=== PATIENT | female | born 1930 | race Caucasian/White ===

== ENCOUNTER 2016-08-20 16:12 | Inpatient (IN) | payer OTHER ==
[~2016-08-20] VITALS: Ht 149.9 cm; Wt 57.2 kg
[~2016-08-20 16:12] MED LIST: ASPI81TA28 PO; CALC-20 PO; CHOL1CAP67 PO; CYAN500T PO; GLUC10007 PO; HYDR-5688 PO; MAGN1TAB19 PO; MINO100C22 PO; MULT-614 PO; SENN-65 PO; TRIA37.5 PO
[2016-08-20] MEDS ORDERED: ACET-1256 PO (16:49)
--- NOTE | 2016-08-20 16:52 | DIAGNOSTIC IMAGING REPORT ---
CHEST ONE VIEW PORTABLE CLINICAL HISTORY: Shortness of breath. COMPARISON STUDY: 01/08/2014 FINDINGS: The heart is enlarged. There is radiographic evidence of congestive failure/fluid overload. There are small bilateral pleural effusions. There are associated bibasilar opacities likely atelectatic. Arthritic changes are present within the shoulders.[ IMPRESSION: Congestive heart failure pattern with bilateral pleural effusions. There are bibasilar opacities, likely atelectatic Electronically signed by: Kofi Cornell M.D. 08/20/2016 4:51 PM Dictated Date/Time: 08/20/2016 4:50 PM
[2016-08-20] MEDS ORDERED: FUROSEMIDE 40 MG/4 ML VIAL IV STA (17:07)
[2016-08-20] MEDS ORDERED: NITROGLYCERIN OINT 2% 1GM PACKET EXT ONE (17:15)
[2016-08-20 17:29] LABS: BASO % 0.8 %; BASO ABS # 0.04 K/uL (0-0.2); COMPLETE YES; EOS % 2.4 %; HEMATOCRIT 36.1 % (37-47); IG% 0.2 %; LYMPH % 33.5 %; LYMPH ABS # 1.78 K/uL (1.2-3.4); MEAN CELL VOLUME 95.3 fL (80-100); MEAN CORPUSCULAR HEMOGLOBIN 32.7 pg (25-34); MEAN CORPUSCULAR HGB CONC 34.3 g/dl (32-36); MONO % 10.5 %; NEUT % 52.6 %; PLATELET COUNT 294 K/uL (130-400); RED BLOOD COUNT 3.79 M/uL (4.2-5.4); WHITE BLOOD COUNT 5.31 K/uL (4.8-10.8)
[2016-08-20 17:42] LABS: PROTHROMBIN TIME (PATIENT) 10.6 SECONDS (9.0-12.0)
[2016-08-20 17:48] LABS: BUN/CREATININE RATIO 19.4 (10-20); CALCIUM 9.7 mg/dl (8.5-10.1); CREATININE 0.72 mg/dl (0.60-1.20); POTASSIUM 3.5 mmol/L (3.5-5.1)
[2016-08-20 17:53] LABS: ALB/GLOB RATIO 1.3 (0.9-2); CKMB/CK RATIO 2.4 (0-3.0)
[2016-08-20 18:11] LABS: URINE APPEARANCE CLEAR (CLEAR); URINE BILIRUBIN NEG (NEG); URINE COLOR YELLOW; URINE NITRITE NEG (NEG); URINE SPECIFIC GRAVITY 1.012 (1.000-1.030); UROBILINOGEN NEG (NEG)
[2016-08-20 18:16] LABS: MANUAL MICROSCOPIC REQUIRED? NO; REVIEW REQ? NO
[2016-08-20] MEDS ORDERED: ONDANSETRON INJ 2 MG/ML 2 ML VIAL IV PRN (21:30)
[2016-08-20] MEDS ORDERED: MoRPHine SULFATE 2 MG/ML CARP IV PRN (21:30)
[2016-08-20] MEDS ORDERED: POLYETHYLENE (MIRALAX) 17 GM PACK PO PRN (21:30)
[2016-08-20] MEDS ORDERED: ACETAMINOPHEN 325 MG TAB PO PRN (21:30)
[2016-08-20] MEDS ORDERED: ASPI325T45 PO (21:38)
[2016-08-20] MEDS ORDERED: ASPIRIN 81 MG CHEW PO STA (21:39)
[2016-08-20 22:09] VITALS: BP 170/90; PULSE 97; TEMP 36.6
[2016-08-20] MEDS: ATORVASTATIN 40 MG TAB PO SCH (22:26)
[2016-08-20] MEDS: NITROGLYCERIN OINT 2% 1GM PACKET EXT SCH (22:26)
--- NOTE | 2016-08-20 22:26 | History and Physical ---
History & Physical Date & Time of Service: Aug 20, 2016 at 21:39 Chief Complaint: Can't Hardly Breath, Swollen Ankles Primary Care Physician: Nona Pradhan M.D. History of Present Illness Source: patient, family, clinic records, hospital records 86 yo F with HTN presents with several weeks of shortness of breath and ankle swelling, with SOB increasing to the point of conversational dyspnea in the last two days. She denies any weight gain and states that her average weight at home is 125lbs. She reports the shortness of breath progressively getting worse over the past month and in the last two days she reports coughing, intermittent chest pain that goes away with rest and comes on with exertion, PND and orthopnea. She denies any swelling in her abdomen or elsewhere. She reports a history of mitral valve regurgitation, however, on review of the records her last TTE in Dec 2012 revealed mitral valve calcification without evident of regurgitation. She denies any h/o COPD and is a lifelong nonsmoker who doesn't use alcohol. She denies any history of heart disease. 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 There is significant tenderness to palpation of her chest on my exam tonight. She also has some conversational dyspnea that is present. She is unable to qualify her chest pain but states that it doesn't radiate. She does report pain with taking a deep breath. She reports feeling drainage in her throat when she lies flat, and this causes her to cough and need to sit up/elevate her head. She reports her ears feeling "itchy" when she lays flat. She was placed on Maxzide for HTN a few months ago and then was taken off because of low sodium and was never put back on. The patient states that when she sees a doctor her BP goes up but at home when she takes it the readings are around 130 systolic. She does report a headache, but only since the nitropaste was placed in the ER. Workup in the ER reveals congestive failure on xray with clear lungs on exam, no JVD, or edema but clear issues with working to breath with minimal exertion. She does not desaturate, however , and is oxygenating well on room air. EKG reveals chronic LBBB, trop is negative and labwork is otherwise unremarkable except for a BNP 2745. Past Medical/Surgical History Medical Problems: (1) Hypertension Status: Chronic Surgical Problems: (1) S/P wrist surgery Status: Chronic (2) Status post cataract extraction Status: Chronic (3) Status post total knee replacement Status: Chronic Family History Bone cancer SISTER FH: CAD (coronary artery disease) FATHER Social History Smoking Status: Never Smoker Smokeless Tobacco Use: No Alcohol Use: none Drug Use: none Marital Status: Housing status: lives with significant other Occupational Status: retired Immunizations History of Influenza Vaccine: Yes Influenza Vaccine Date: Dec 20, 2015 History of Tetanus Vaccine?: Yes Tetanus Immunization Date: June 12, 2007 History of Pneumococcal: Yes Pneumococcal Date: May 10, 2014 History of Hepatitis B Vaccine: No Multi-Drug Resistant Organisms History of MDRO: No Allergies Coded Allergies: Sulfa Antibiotics (Unverified Allergy, Unknown, CAN'T RECALL REACTION, 12/27) Home Medications Scheduled Aspirin (Aspirin), 325 MG PO DAILY Multiple Vitamins W/ Minerals (Centrum Silver Ultra [place]), 1 TAB PO DAILY Scheduled PRN Acetaminophen (Tylenol), 500 MG PO DIRECTED PRN for Pain or Fever Review of Systems Constitutional: + weakness, No fever, No chills, No weight loss Eyes: No worsening of vision ENT: + dental problems (dentures), No nasal symptoms, No sore throat Respiratory: + cough, + shortness of breath, + dyspnea on exertion Cardiovascular: + chest pain, + orthopnea, + PND, + edema Abdomen: No pain, No nausea, No vomiting, No diarrhea, No constipation, No GI bleeding Musculoskeletal: + joint pain, + muscle pain (in her chest), + swelling Genitourinary - Female: No dysuria, No urinary frequency, No urinary urgency, No urinary incontinence, No urinary retention, No hematuria Psychiatric: No substance abuse Hematologic / Lymphatic: No night sweats Integumentary: No rash, No new/changing skin lesions Allergic / Immunologic: No food allergies Physical Exam Vital Signs Date Time Temp Pulse Resp B/P (MAP) Pulse Ox O2 Delivery O2 Flow Rate FiO2 08/20/16 21:04 91 20 167/94 94 Room Air 08/20/16 20:43 94 08/20/16 19:30 90 18 172/89 94 Room Air 08/20/16 18:00 97 191/118 93 Room Air 08/20/16 17:37 93 168/119 95 Room Air 08/20/16 17:23 124 97 Room Air 08/20/16 17:21 102 193/100 93 08/20/16 16:41 Room Air 08/20/16 16:41 94 08/20/16 16:35 93 08/20/16 16:17 36.8 103 22 176/65 96 Room Air General Appearance: WD/WN, + mild distress Head: normocephalic, atraumatic Eyes: normal inspection, PERRL, EOMI, sclerae normal ENT: normal ENT inspection, pharynx normal Neck: supple, no adenopathy, no JVD, trachea midline Respiratory/Chest: lungs clear, normal breath sounds, + respiratory distress ( severe TTP under L breast and along sternal borders bilaterally), + pertinent finding Cardiovascular: regular rate, rhythm, no edema, no murmur, normal peripheral pulses Abdomen/GI: normal bowel sounds, non tender, soft Extremities/Musculoskelatal: normal inspection, no pedal edema, normal range of motion, + pertinent finding (shins are TTP) Neurologic/Psych: survey manager II-XII nml as tested, no motor/sensory deficits, alert, normal mood/affect, oriented x 3 Skin: normal color, no rash Diagnostics Laboratory Results 08/20/16 17:00 Red Blood Count 3.79, Mean Corpuscular Volume 95.3, Mean Corpuscular Hemoglobin 32.7, Mean Corpuscular Hemoglobin Concent 34.3, Mean Platelet Volume 10.0, Neutrophils (%) (Auto) 52.6, Lymphocytes (%) (Auto) 33.5, Monocytes (%) (Auto) 10.5, Eosinophils (%) (Auto) 2.4, Basophils (%) (Auto) 0.8, Neutrophils # (Auto ) 2.79, Lymphocytes # (Auto) 1.78, Monocytes # (Auto) 0.56, Eosinophils # (Auto ) 0.13, Basophils # (Auto) 0.04 08/20/16 17:00 Test 08/20/16 17:00 08/20/16 17:08 08/20/16 23:23 08/21/16 00:00 White Blood Count 5.31 K/uL (4.8-10.8) Red Blood Count 3.79 M/uL (4.2-5.4) Hemoglobin 12.4 g/dL (12.0-16.0) Hematocrit 36.1 % (37-47) Mean Corpuscular Volume 95.3 fL (80-100) Mean Corpuscular Hemoglobin 32.7 pg (25-34) Mean Corpuscular Hemoglobin Concent 34.3 g/dl (32-36) Platelet Count 294 K/uL (130-400) Mean Platelet Volume 10.0 fL (7.4-10.4) Neutrophils (%) (Auto) 52.6 % Lymphocytes (%) (Auto) 33.5 % Monocytes (%) (Auto) 10.5 % Eosinophils (%) (Auto) 2.4 % Basophils (%) (Auto) 0.8 % Neutrophils # (Auto) 2.79 K/uL (1.4-6.5) Lymphocytes # (Auto) 1.78 K/uL (1.2-3.4) Monocytes # (Auto) 0.56 K/uL (0.11-0.59) Eosinophils # (Auto) 0.13 K/uL (0-0.5) Basophils # (Auto) 0.04 K/uL (0-0.2) RDW Standard Deviation 43.3 fL (36.4-46.3) RDW Coefficient of Variation 12.6 % (11.5-14.5) Immature Granulocyte % (Auto) 0.2 % Immature Granulocyte # (Auto) 0.01 K/uL (0.00-0.02) Prothrombin Time 10.6 SECONDS (9.0-12.0) Prothromb Time International Ratio 1.0 (0.9-1.1) Activated Partial Thromboplast Time 25.9 SECONDS (21.0-31.0) Partial Thromboplastin Ratio 1.0 Anion Gap 11.0 mmol/L (3-11) Est Creatinine Clear Calc Drug Dose 45.2 ml/min Estimated GFR () 88.5 Estimated GFR (Non- 76.4 BUN/Creatinine Ratio 19.4 (10-20) Calcium Level 9.7 mg/dl (8.5-10.1) Total Bilirubin 0.6 mg/dl (0.2-1) Aspartate Amino Transf (AST/SGOT) 25 U/L (15-37) Alanine Aminotransferase (ALT/SGPT) 35 U/L (12-78) Alkaline Phosphatase 74 U/L (45-117) Pro-B-Type Natriuretic Peptide 2745 pg/ml (0-1800) Total Protein 6.8 gm/dl (6.4-8.2) Albumin 3.9 gm/dl (3.4-5.0) Globulin 2.9 gm/dl (2.5-4.0) Albumin/Globulin Ratio 1.3 (0.9-2) Bedside Lactic Acid Venous 0.84 mmol/L (0.90-1.70) Total Creatine Kinase 80 U/L (26-192) Creatine Kinase MB 2.5 ng/ml (0.5-3.6) Creatine Kinase MB Ratio 3.1 (0-3.0) Troponin I 0.148 ng/ml (0-0.045) Urine Color YELLOW Urine Appearance CLEAR (CLEAR) Urine pH 7.5 (4.5-7.5) Urine Specific [place] 1.014 (1.000-1.030) Urine Protein NEG (NEG) Urine Glucose (UA) NEG (NEG) Urine Ketones NEG (NEG) Urine Occult Blood NEG (NEG) Urine Nitrite NEG (NEG) Urine Bilirubin NEG (NEG) Urine Urobilinogen NEG (NEG) Urine Leukocyte Esterase NEG (NEG) Date/Time Source Procedure Growth Status 08/20/16 17:26 Blood Blood Culture Pending Received 08/21/16 00:00 Urine,Catheterized Urine Culture Pending Received Results Past 24 Hours Test 08/20/16 17:00 08/20/16 17:08 08/20/16 17:43 Range/Units White Blood Count 5.31 4.8-10.8 K/uL Red Blood Count 3.79 4.2-5.4 M/uL Hemoglobin 12.4 12.0-16.0 g/dL Hematocrit 36.1 37-47 % Mean Corpuscular Volume 95.3 80-100 fL Mean Corpuscular Hemoglobin 32.7 25-34 pg Mean Corpuscular Hemoglobin Concent 34.3 32-36 g/dl Platelet Count 294 130-400 K/uL Mean Platelet Volume 10.0 7.4-10.4 fL Neutrophils (%) (Auto) 52.6 % Lymphocytes (%) (Auto) 33.5 % Monocytes (%) (Auto) 10.5 % Eosinophils (%) (Auto) 2.4 % Basophils (%) (Auto) 0.8 % Neutrophils # (Auto) 2.79 1.4-6.5 K/uL Lymphocytes # (Auto) 1.78 1.2-3.4 K/uL Monocytes # (Auto) 0.56 0.11-0.59 K/uL Eosinophils # (Auto) 0.13 0-0.5 K/uL Basophils # (Auto) 0.04 0-0.2 K/uL RDW Standard Deviation 43.3 36.4-46.3 fL RDW Coefficient of Variation 12.6 11.5-14.5 % Immature Granulocyte % (Auto) 0.2 % Immature Granulocyte # (Auto) 0.01 0.00-0.02 K/uL Prothrombin Time 10.6 9.0-12.0 SECONDS Prothromb Time International Ratio 1.0 0.9-1.1 Activated Partial Thromboplast Time 25.9 21.0-31.0 SECONDS Partial Thromboplastin Ratio 1.0 Sodium Level 134 136-145 mmol/L Potassium Level 3.5 3.5-5.1 mmol/L Chloride Level 101 98-107 mmol/L Carbon Dioxide Level 22 21-32 mmol/L Anion Gap 11.0 3-11 mmol/L Blood Urea Nitrogen 14 7-18 mg/dl Creatinine 0.72 0.60-1.20 mg/dl Est Creatinine Clear Calc Drug Dose 45.2 ml/min Estimated GFR () 88.5 Estimated GFR (Non- 76.4 BUN/Creatinine Ratio 19.4 10-20 Random Glucose 104 70-99 mg/dl Calcium Level 9.7 8.5-10.1 mg/dl Total Bilirubin 0.6 0.2-1 mg/dl Aspartate Amino Transf (AST/SGOT) 25 15-37 U/L Alanine Aminotransferase (ALT/SGPT) 35 12-78 U/L Alkaline Phosphatase 74 45-117 U/L Total Creatine Kinase 84 26-192 U/L Creatine Kinase MB 2.0 0.5-3.6 ng/ml Creatine Kinase MB Ratio 2.4 0-3.0 Troponin I 0.025 0-0.045 ng/ml Pro-B-Type Natriuretic Peptide 2745 0-1800 pg/ml Total Protein 6.8 6.4-8.2 gm/dl Albumin 3.9 3.4-5.0 gm/dl Globulin 2.9 2.5-4.0 gm/dl Albumin/Globulin Ratio 1.3 0.9-2 Bedside Lactic Acid Venous 0.84 0.90-1.70 mmol/L Urine Color YELLOW Urine Appearance CLEAR CLEAR Urine pH 7.0 4.5-7.5 Urine Specific [place] 1.012 1.000-1.030 Urine Protein NEG NEG Urine Glucose (UA) NEG NEG Urine Ketones NEG NEG Urine Occult Blood NEG NEG Urine Nitrite NEG NEG Urine Bilirubin NEG NEG Urine Urobilinogen NEG NEG Urine Leukocyte Esterase NEG NEG Microbiology Results 08/20/16 Blood Culture, Received Pending 08/20/16 Blood Culture, Received Pending Diagnostic Radiology CHEST ONE VIEW PORTABLE CLINICAL HISTORY: Shortness of breath. COMPARISON STUDY: 01/08/2014 FINDINGS: The heart is enlarged. There is radiographic evidence of congestive failure/fluid overload. There are small bilateral pleural effusions. There are associated bibasilar opacities likely atelectatic. Arthritic changes are present within the shoulders.[ IMPRESSION: Congestive heart failure pattern with bilateral pleural effusions. There are bibasilar opacities, likely atelectatic EKG LBBB (on prior EKG), SR99 Impression Assessment and Plan 86 yo F presents with progressive SOB over the past month with worsening in the past two days. 1. Acute CHF exacerbation-no known h/o CAD, patient does reports a mitral valve disorder, however, there is no obvious murmur on exam and per last echo no MR was present. CXR reveals pulmonary congestion, however, patient has clear lungs on exam and no edema in lower extremities. She does have conversational dyspnea, PND and orthopnea that appears significant. Cards consult for eval in the morning. TTE in am ordered. Trend serial cardiac enzymes overnight in setting of CHF with chest pain. Of note, pt was given 20 IV Lasix in the ER and diuresed 1500cc. Will place [place] for accurate I/Os and will not redose furosemide again until the morning. 2. Chest pain-atypical and definitely has a musculoskeletal component. May be related to cardiac chest pain. Will treat as above and Lipitor for plaque stabilization. Cont ASA. Nitro, morphine PRN 3. HTN-not on antihypertensives as an outpatient. Pt was on Maxzide but was taken off of it for electrolyte abnormalities and not given a substitute. Nitro paste continued from ER. Primary team to assist with definitive choice. DVT proph-heparin SQ Full Code Dispo-telemetry Basia Bland DO [facility]. Level of Care Telemetry Resuscitation Status FULL RESUSCITATION VTE Prophylaxis VTE Risk Assessment Done? Y/N: Yes Risk Level: Moderate Given or contraindicated: Unfractionated heparin SQ
[2016-08-20] MEDS: HEPARIN SOD 5000 UNIT/0.5 ML CARP SQ SCH (22:30)
[2016-08-20 23:27] VITALS: BP 157/80; PULSE 81; TEMP 36.5; O2SAT 90
[2016-08-20 23:43] VITALS: BP 170/90; PULSE 97; TEMP 36.6; O2SAT 90; Ht 149.9 cm; Wt 57.2 kg
[2016-08-21] VITALS (10 sets, daily range): BP systolic 112–165; BP diastolic 52–89; PULSE 85–102; TEMP 36.4–36.7; O2SAT 90–95
[2016-08-21 00:22] LABS: CKMB/CK RATIO 3.1 (0-3.0)
--- NOTE | 2016-08-21 00:46 | EMERGENCY ROOM VISIT NOTE ---
History Report prepared by Edy: Rosario Myers Under the Supervision of: Dr. Ace Lam M.D. First contact with patient: 16:30 Chief Complaint: SHORTNESS OF BREATH Stated Complaint: CAN'T HARDLY BREATH, SWOLLEN ANKLES History of Present Illness The patient is an 86 year old female who presents to the Emergency Room with complaints of persistent, worsening shortness of breath that began three weeks ago. She currently rates her discomfort as a 3/10 in severity. The patient states that she has been feeling short of breath and noticed increased edema to her ankles. She states that she saw her PCP's office and states that the physician therapeutic assistant did not do anything for her. The patient states that her edema is worse at night. She additionally reports a nonproductive cough. The patient states that she has been noticing intermittent slight left sided chest pains. She states that she has been feeling fatigued. The patient states that she can only walk short distances and then must stop to take a rest because of feeling short of breath. She reports a history of a mitral valve leakage. The patient denies any history of COPD, congestive heart failure, pneumonia, or emphysema. Pt denies LOC, headache, fevers, chills, diaphoresis, visual changes , neck pain, nausea, vomiting, abdominal pain, back pain, melena, hematochezia, urinary symptoms, numbness, weakness, lymphadenopathy, rash, or other complaints. Source of History: patient Onset: three weeks ago Position: other (global) Symptom Intensity: 3/10 Quality: other (shortness of breath) Timing: worsening, other (persistent) Associated Symptoms: + cough, + chest pain, + fatigue Note: Associated Symptoms: swelling to ankles Review of Systems See HPI for pertinent positives and negatives. A total of ten systems were reviewed and were otherwise negative. Past Medical & Surgical Medical Problems: (1) CHF exacerbation (2) Hypertension (3) Mitral valve regurgitation Surgical Problems: (1) S/P wrist surgery (2) Status post cataract extraction (3) Status post total knee replacement Family History Bone cancer SISTER FH: CAD (coronary artery disease) FATHER Social History Smoking Status: Never Smoker Marital Status: Housing Status: lives with family Current/Historical Medications Scheduled Aspirin (Aspirin), 325 MG PO DAILY Multiple Vitamins W/ Minerals (Centrum Silver Ultra [place]), 1 TAB PO DAILY Scheduled PRN Acetaminophen (Tylenol), 500 MG PO DIRECTED PRN for Pain or Fever Allergies Coded Allergies: Sulfa Antibiotics (Unverified Allergy, Unknown, CAN'T RECALL REACTION, 12/27) Physical Exam Vital Signs Date Time Temp Pulse Resp B/P (MAP) Pulse Ox O2 Delivery O2 Flow Rate FiO2 08/20/16 19:30 90 18 172/89 94 Room Air 08/20/16 18:00 97 191/118 93 Room Air 08/20/16 17:37 93 168/119 95 Room Air 08/20/16 17:23 124 97 Room Air 08/20/16 17:21 102 193/100 93 08/20/16 16:41 Room Air 08/20/16 16:41 94 08/20/16 16:35 93 08/20/16 16:17 36.8 103 22 176/65 96 Room Air Physical Exam GENERAL: Awake, alert, well-appearing, in no distress HENT: Normocephalic, atraumatic. Oropharynx unremarkable. EYES: Normal conjunctiva. Sclera non-icteric. NECK: Supple. No nuchal rigidity. FROM. No JVD. RESPIRATORY: Scattered rales. CARDIAC: Borderline tachycardic heart rate, normal rhythm. Extremities warm and well perfused. Pulses equal. ABDOMEN: Soft, non-distended. No tenderness to palpation. No rebound or guarding. No masses. RECTAL: Deferred. MUSCULOSKELETAL: Chest examination reveals no tenderness. The back is symmetrical on inspection without obvious abnormality. There is no CVA tenderness to palpation. No joint edema. LOWER EXTREMITIES: Calves are equal size bilaterally and non-tender. 1+ lower extremity edema. No discoloration. NEURO: Normal sensorium. No sensory or motor deficits noted. SKIN: No rash or jaundice noted. Medical Decision & Procedures ER Provider Diagnostic Interpretation: X-ray: Per my interpretation, radiologist review. CHEST ONE VIEW PORTABLE CLINICAL HISTORY: Shortness of breath. COMPARISON STUDY: 01/08/2014 FINDINGS: The heart is enlarged. There is radiographic evidence of congestive failure/fluid overload. There are small bilateral pleural effusions. There are associated bibasilar opacities likely atelectatic. Arthritic changes are present within the shoulders.[ IMPRESSION: Congestive heart failure pattern with bilateral pleural effusions. There are bibasilar opacities, likely atelectatic Electronically signed by: Kofi Cornell M.D. 08/20/2016 4:51 PM Dictated Date/Time: 08/20/2016 4:50 PM Laboratory Results 08/20/16 17:00 Red Blood Count 3.79, Mean Corpuscular Volume 95.3, Mean Corpuscular Hemoglobin 32.7, Mean Corpuscular Hemoglobin Concent 34.3, Mean Platelet Volume 10.0, Neutrophils (%) (Auto) 52.6, Lymphocytes (%) (Auto) 33.5, Monocytes (%) (Auto) 10.5, Eosinophils (%) (Auto) 2.4, Basophils (%) (Auto) 0.8, Neutrophils # (Auto ) 2.79, Lymphocytes # (Auto) 1.78, Monocytes # (Auto) 0.56, Eosinophils # (Auto ) 0.13, Basophils # (Auto) 0.04 08/20/16 17:00 Test 08/20/16 17:00 08/20/16 17:08 08/20/16 17:43 White Blood Count 5.31 K/uL (4.8-10.8) Red Blood Count 3.79 M/uL (4.2-5.4) Hemoglobin 12.4 g/dL (12.0-16.0) Hematocrit 36.1 % (37-47) Mean Corpuscular Volume 95.3 fL (80-100) Mean Corpuscular Hemoglobin 32.7 pg (25-34) Mean Corpuscular Hemoglobin Concent 34.3 g/dl (32-36) Platelet Count 294 K/uL (130-400) Mean Platelet Volume 10.0 fL (7.4-10.4) Neutrophils (%) (Auto) 52.6 % Lymphocytes (%) (Auto) 33.5 % Monocytes (%) (Auto) 10.5 % Eosinophils (%) (Auto) 2.4 % Basophils (%) (Auto) 0.8 % Neutrophils # (Auto) 2.79 K/uL (1.4-6.5) Lymphocytes # (Auto) 1.78 K/uL (1.2-3.4) Monocytes # (Auto) 0.56 K/uL (0.11-0.59) Eosinophils # (Auto) 0.13 K/uL (0-0.5) Basophils # (Auto) 0.04 K/uL (0-0.2) RDW Standard Deviation 43.3 fL (36.4-46.3) RDW Coefficient of Variation 12.6 % (11.5-14.5) Immature Granulocyte % (Auto) 0.2 % Immature Granulocyte # (Auto) 0.01 K/uL (0.00-0.02) Prothrombin Time 10.6 SECONDS (9.0-12.0) Prothromb Time International Ratio 1.0 (0.9-1.1) Activated Partial Thromboplast Time 25.9 SECONDS (21.0-31.0) Partial Thromboplastin Ratio 1.0 Anion Gap 11.0 mmol/L (3-11) Est Creatinine Clear Calc Drug Dose 45.2 ml/min Estimated GFR () 88.5 Estimated GFR (Non- 76.4 BUN/Creatinine Ratio 19.4 (10-20) Calcium Level 9.7 mg/dl (8.5-10.1) Total Bilirubin 0.6 mg/dl (0.2-1) Aspartate Amino Transf (AST/SGOT) 25 U/L (15-37) Alanine Aminotransferase (ALT/SGPT) 35 U/L (12-78) Alkaline Phosphatase 74 U/L (45-117) Pro-B-Type Natriuretic Peptide 2745 pg/ml (0-1800) Total Protein 6.8 gm/dl (6.4-8.2) Albumin 3.9 gm/dl (3.4-5.0) Globulin 2.9 gm/dl (2.5-4.0) Albumin/Globulin Ratio 1.3 (0.9-2) Bedside Lactic Acid Venous 0.84 mmol/L (0.90-1.70) Urine Color YELLOW Urine Appearance CLEAR (CLEAR) Urine pH 7.0 (4.5-7.5) Urine Specific [place] 1.012 (1.000-1.030) Urine Protein NEG (NEG) Urine Glucose (UA) NEG (NEG) Urine Ketones NEG (NEG) Urine Occult Blood NEG (NEG) Urine Nitrite NEG (NEG) Urine Bilirubin NEG (NEG) Urine Urobilinogen NEG (NEG) Urine Leukocyte Esterase NEG (NEG) Laboratory results reviewed by me Medications Administered Medications (Trade) Dose Ordered Sig/[place] Route Start Time Stop Time Status Last Admin Dose Admin Nitroglycerin (Nitroglycerin 2% Oint) 0.5 inch NOW ONCE EXT 08/20/16 17:15 08/20/16 17:16 DC 08/20/16 17:23 0.5 INCH Furosemide (Lasix Inj) 20 mg NOW STAT IV 08/20/16 17:07 08/20/16 17:09 DC 08/20/16 17:21 20 MG ECG Indication: SOB/dyspnea Rate (beats per minute): 99 Rhythm: normal sinus Findings: LBBB, no ectopy Comparison ECG Date: 01/08/14 Change: no significant change ED Course 1657: The patient was evaluated in room A3. A complete history and physical exam was performed. 1706: Ordered Lasix Inj 20 mg IV. 1714: Ordered Nitroglycerin 0.5 inch EXT. 1920: I reevaluated the patient and she is resting comfortably. I discussed the exam findings with her and I discussed the treatment plan. She verbalized complete understanding and agreement. She will be evaluated for further treatment. 1923: I discussed the patients case with Barbara Cates. She is going to evaluate the patient for further treatment. Medical Decision Blood pressure screening: Patient was found to have an elevated blood pressure and was referred to their primary doctor for recheck and further treatment. Medication Reconciliation: I attest that I have personally reviewed the patient' s current medication list Triage Nursing notes reviewed. The patient's presentation and history were concerning for shortness of breath. Etiologies such as pneumonia, COPD, reactive airway disease, CHF, cardiac ischemia, pulmonary embolism, pneumothorax, musculoskeletal, infections, gastrointestinal, as well as others were entertained. Patient was evaluated. Clinically she was doing well although was dyspneic. Chest x-ray was performed and was concerning for CHF. The patient had an unremarkable CBC, lactate, coags, urinalysis and cardiac markers. BNP was significantly elevated. Given her history, physical, x-ray and laboratory findings seems to be new onset CHF. The patient was given Lasix as well as nitro paste. On reassessment she was breathing easier. She will need further evaluation and management in the hospital. Consultation was made with the [facility] hospitalist. The patient was evaluated in the Emergency Room for further management. Consults Time Called: 1919 Consulting Physician: Barbara Cates Returned Call: 1923 I discussed the patients case with Barbara Cates. She is going to evaluate the patient for further treatment. Impression Primary Impression: Acute CHF Scribe Attestation The scribe's documentation has been prepared under my direction and personally reviewed by me in its entirety. I confirm that the note above accurately reflects all work, treatment, procedures, and medical decision making performed by me. Departure Information Dispostion Being Evaluated By Hospitalist Referrals Nona Pradhan M.D. (PCP)
[2016-08-21 01:28] LABS: MANUAL MICROSCOPIC REQUIRED? NO; REVIEW REQ? NO; URINE APPEARANCE CLEAR (CLEAR); URINE BILIRUBIN NEG (NEG); URINE COLOR YELLOW; URINE NITRITE NEG (NEG); URINE PH 7.5 (4.5-7.5); URINE SPECIFIC GRAVITY 1.014 (1.000-1.030); UROBILINOGEN NEG (NEG)
[2016-08-21] MEDS: NITROGLYCERIN OINT 2% 1GM PACKET EXT SCH ×4 (04:09→21:39)
[2016-08-21 05:45] LABS: HEMATOCRIT 37.8 % (37-47); MEAN CELL VOLUME 94.5 fL (80-100); MEAN CORPUSCULAR HEMOGLOBIN 30.8 pg (25-34); MEAN CORPUSCULAR HGB CONC 32.5 g/dl (32-36); PLATELET COUNT 309 K/uL (130-400); WHITE BLOOD COUNT 5.76 K/uL (4.8-10.8)
[2016-08-21] MEDS: HEPARIN SOD 5000 UNIT/0.5 ML CARP SQ SCH ×3 (05:57→21:44)
[2016-08-21 06:04] LABS: BUN/CREATININE RATIO 24.1 (10-20); CALCIUM 8.8 mg/dl (8.5-10.1); CREATININE 0.58 mg/dl (0.60-1.20); POTASSIUM 3.2 mmol/L (3.5-5.1)
[2016-08-21 06:12] LABS: CHOLESTEROL/HDL RATIO 2.3; CKMB/CK RATIO 4.4 (0-3.0)
[2016-08-21] MEDS: CEROVITE ADV FORMULA TAB PO SCH (07:37)
[2016-08-21] MEDS: ASPIRIN 325 MG ECTAB PO SCH (07:37)
[2016-08-21] MEDS ORDERED: POTASSIUM CHLORIDE 20 MEQ TABCR PO ONE (08:00)
[2016-08-21] MEDS ORDERED: POTASSIUM CHLORIDE INJ 40 MEQ in SODIUM CHLORIDE 0.9% 500ML 500 ML IV SCH (08:00)
--- NOTE | 2016-08-21 10:41 | Clinical Documentation Query ---
QUERY 1 OF [address] TORRES, Please document CHF specificity when ECHO results are available In your clinical opinion is this patient being managed for: ( ) Acute Diastolic CHF ( ) Acute Systolic CHF ( ) Acute combined systolic and diastolic CHF ( ) Other explanation of clinical findings (Please Explain) ( ) Unable to determine (Please Define) ( ) Need to Discuss ( ) Not Agree The medical record reflects the following clinical findings, treatment, and risk factors. Clinical Indicators: 86 yo female presenting with worsening dyspnea, increasing ankle edema and intermittent chest pain with exertion. H/P indicates pt with Acute CHF. Treatment: IV lasix x 1 in ER and to be reevaluated for further dosing, tele, cardiology consult, ECHO pending, I/O Risk Factors: age, HTN QUERY 2 OF 2 In your clinical opinion is this patient being managed for: ( ) Chronic kidney disease, stage 2 ( ) Other explanation of clinical findings (Please Explain) ( ) Unable to determine (Please Define) ( ) Need to Discuss ( ) Not Agree The medical record reflects the following clinical findings, treatment, and risk factors. Clinical Indicators: Review of limited available GFR's shows range of 76.4-84. Treatment: monitor PRP's, I/O, tele, Risk Factors: age, HTN, mitral valve regurgitation Please clarify and document your clinical opinion in the progress notes and discharge summary. Terms such as "probable", "suspected", "likely", "questionable", "possible", or "still to be ruled out" are acceptable. IF IN AGREEMENT, YOU MUST DOCUMENT ABOVE DIAGNOSTIC STATEMENT IN DAILY PROGRESS NOTES AND DISCHARGE SUMMARY. This document is not part of the patient's record. Thank You, Davida Callejas, RN [phone]
--- NOTE | 2016-08-21 11:31 | Cardiology Consultation ---
Cardiology Consultation Date of Consultation: Aug 21, 2016 Requesting Physician: Baldo Attending Rug Scratcher: Jake (Michele Huerta PA-C) History of Present Illness Mrs. Gates is a very pleasant 86 year old female who is being seen at the request of Dr. Bland. Reason for consultation is new onset congestive heart failure. Mrs. Gates notes being in her usual state of health until May 2016. At that time routine laboratory work revealed hyponatremia for which she received a call from her PCP and was advised to stop Maxzide. Thereafter she began to notice changes. She describes that it because harder to do her housework, plant gore, plant tomatoes, etc. She describes increased fatigue, reduced exercise tolerance, increased exertional dyspnea, reduction in exercise tolerance, distal bilateral lower extremity edema, wheezing at night, orthopnea, and intermittent PND. She notes trying Vics and an OTC cough syrup at night without benefit. Symptoms progressed to conversational dyspnea over the last two days. Chest x-ray in the ER revealed congestive heart failure with bilateral pleural effusions and bibasilar airspace opacities felt to be atelectatic as per Dr. Kraig M.D. She was given 20 mg IV furosemide with considerable improvement in her presenting symptoms, 1,750 ml's of diuresis thus far with the single dose of furosemide in the ER. Blood pressure was markedly elevated on presentation, improving somewhat with diuresis and the addition of nitro paste. EKG is as described below. Initial troponin was normal (0.025 ng/mL) then beth to 0.248 and 0.520. This morning the patient feels improved overall since admission though she describes ongoing stuffiness, congestion. She denies history of OR, CAD, CHF, rheumatic fever, or scarlet fever. Her lone cardiac issue is a remote history of mitral valve prolapse. (Michele Huerta PA-C) Past Medical/Surgical History Problem List: Past Medical and Surgical History: Hypertension Chronic left bundle branch block Diastolic dysfunction Mitral valve disorder Dyslipidemia Impaired fasting glucose Migraine headaches Anxiety Generalized osteoarthritis Osteoporosis T7 wedge compression fracture Left rotator cuff issues Cervical disc disease Left total knee replacement Distal right radius fracture status post surgery Bilateral cataract extraction Diverticulosis of colon Diverticulitis of colon Family History: Father at 71 with an OR. Mother at 88 of "old age." One sister at 85 with bone cancer. Two brothers and one sister remain. Brother with prostate cancer and diabetes mellitus. Social History: Lifelong nonsmoker. No alcohol. No illegal drug use. . Lives with her . 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 Two children. Son alive and well. Daughter at 50, alcoholic cirrhosis. 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 (Michele Huerta PA-C) Family History Bone cancer SISTER FH: CAD (coronary artery disease) FATHER (Michele Huerta PA-C) Bone cancer SISTER FH: CAD (coronary artery disease) FATHER (Angelo Joseph D.OHarvey) Social History Smoking Status: Never Smoker Smokeless Tobacco Use: No Alcohol Use: none Drug Use: none Marital Status: Housing Status: lives with significant other Occupation: retired (Michele Huerta PA-C) Review Of Systems General: No fever or chills. HEENT: Headaches. No recent head trauma. Mouth: Dentures. Cardiovascular: + chest pain. + dyspnea on exertion. + Orthopnea. + PND. + Edema. No palpitations. No near syncope or syncope. Pulmonary: + Cough. + Nocturnal wheezing. + Pleuritic discomfort. No sputum. No hemoptysis. Gastrointestinal: + Nausea. + Mild diffuse abdominal discomfort. Intermittent constipation. No vomiting. Skin: No rash. Musculoskeletal: Diffise discomfort. Shoulder discomfort. Low back pain. Diffuse pain/tenderness to both legs. Neurological: Denies history of TIA, CVA, or seizure Otherwise, negative or noncontributory. (Michele Huerta PA-C) Allergies Coded Allergies: Sulfa Antibiotics (Unverified Allergy, Unknown, CAN'T RECALL REACTION, 12/27) Medications Reported Home Medications Medications Dose Route/Sig Max Daily Dose Days Date Category Aspirin 325 Mg Tab 325 Mg PO DAILY 08/20/16 Reported Tylenol (Acetaminophen) 500 Mg Tab 500 Mg PO DIRECTED PRN 08/20/16 Reported Centrum Silver Ultra [place] (Multiple Vitamins W/ Minerals) 1 Tab Tab 1 Tab PO DAILY 05/31/13 Reported (Michele Huerta PA-C) Physical Exam Vital Signs (Last 8hrs): Last 8 Hrs Date Time Temp Pulse Resp B/P (MAP) Pulse Ox O2 Delivery O2 Flow Rate FiO2 08/21/16 08:00 Room Air 08/21/16 07:25 36.6 90 16 158/76 (103) 90 Room Air 08/21/16 04:00 Room Air 08/21/16 04:00 36.5 85 16 152/80 (104) 93 Room Air General Appearance: Alert and Oriented x3. NAD. HEENT: Normocephalic Atraumatic. PERRLA, EOMI, conjunctiva and sclera clear Neck: Elevated JVP. + HJR. No carotid bruits. Respiratory: Bibasilar rales. No wheeze. Cardiovascular: Regular at 94 bpm. + Gallop. Soft systolic ejection murmur, right upper sternal border. No diastolic murmur. PMI is displaced laterally. Abdomen: +BS. No abdominal bruits. Soft. Nontender. No masses. No hepatomegaly or splenomegaly. Acosta catheter in place draining somewhat concentrated urine. Extremities: Trivial edema. No clubbing. No cyanosis. Distal pulses are excellent bilaterally, 2/4 Neuro: No focal deficits. Psychiatric: Normal affect. (Michele Huerta, ALENA) Data Last 24 Hours Test 08/20/16 17:00 08/20/16 17:08 08/20/16 17:43 08/20/16 23:23 White Blood Count 5.31 K/uL Red Blood Count 3.79 M/uL Hemoglobin 12.4 g/dL Hematocrit 36.1 % Mean Corpuscular Volume 95.3 fL Mean Corpuscular Hemoglobin 32.7 pg Mean Corpuscular Hemoglobin Concent 34.3 g/dl Platelet Count 294 K/uL Mean Platelet Volume 10.0 fL Neutrophils (%) (Auto) 52.6 % Lymphocytes (%) (Auto) 33.5 % Monocytes (%) (Auto) 10.5 % Eosinophils (%) (Auto) 2.4 % Basophils (%) (Auto) 0.8 % Neutrophils # (Auto) 2.79 K/uL Lymphocytes # (Auto) 1.78 K/uL Monocytes # (Auto) 0.56 K/uL Eosinophils # (Auto) 0.13 K/uL Basophils # (Auto) 0.04 K/uL RDW Standard Deviation 43.3 fL RDW Coefficient of Variation 12.6 % Immature Granulocyte % (Auto) 0.2 % Immature Granulocyte # (Auto) 0.01 K/uL Prothrombin Time 10.6 SECONDS Prothromb Time International Ratio 1.0 Activated Partial Thromboplast Time 25.9 SECONDS Partial Thromboplastin Ratio 1.0 Sodium Level 134 mmol/L Potassium Level 3.5 mmol/L Chloride Level 101 mmol/L Carbon Dioxide Level 22 mmol/L Anion Gap 11.0 mmol/L Blood Urea Nitrogen 14 mg/dl Creatinine 0.72 mg/dl Est Creatinine Clear Calc Drug Dose 45.2 ml/min Estimated GFR () 88.5 Estimated GFR (Non- 76.4 BUN/Creatinine Ratio 19.4 Random Glucose 104 mg/dl Calcium Level 9.7 mg/dl Total Bilirubin 0.6 mg/dl Aspartate Amino Transf (AST/SGOT) 25 U/L Alanine Aminotransferase (ALT/SGPT) 35 U/L Alkaline Phosphatase 74 U/L Total Creatine Kinase 84 U/L 80 U/L Creatine Kinase MB 2.0 ng/ml 2.5 ng/ml Creatine Kinase MB Ratio 2.4 3.1 Troponin I 0.025 ng/ml 0.148 ng/ml Pro-B-Type Natriuretic Peptide 2745 pg/ml Total Protein 6.8 gm/dl Albumin 3.9 gm/dl Globulin 2.9 gm/dl Albumin/Globulin Ratio 1.3 Bedside Lactic Acid Venous 0.84 mmol/L Urine Color YELLOW Urine Appearance CLEAR Urine pH 7.0 Urine Specific [place] 1.012 Urine Protein NEG Urine Glucose (UA) NEG Urine Ketones NEG Urine Occult Blood NEG Urine Nitrite NEG Urine Bilirubin NEG Urine Urobilinogen NEG Urine Leukocyte Esterase NEG Test 08/21/16 00:00 08/21/16 05:20 Urine Color YELLOW Urine Appearance CLEAR Urine pH 7.5 Urine Specific [place] 1.014 Urine Protein NEG Urine Glucose (UA) NEG Urine Ketones NEG Urine Occult Blood NEG Urine Nitrite NEG Urine Bilirubin NEG Urine Urobilinogen NEG Urine Leukocyte Esterase NEG White Blood Count 5.76 K/uL Red Blood Count 4.00 M/uL Hemoglobin 12.3 g/dL Hematocrit 37.8 % Mean Corpuscular Volume 94.5 fL Mean Corpuscular Hemoglobin 30.8 pg Mean Corpuscular Hemoglobin Concent 32.5 g/dl RDW Standard Deviation 42.8 fL RDW Coefficient of Variation 12.5 % Platelet Count 309 K/uL Mean Platelet Volume 10.0 fL Sodium Level 136 mmol/L Potassium Level 3.2 mmol/L Chloride Level 100 mmol/L Carbon Dioxide Level 27 mmol/L Anion Gap 9.0 mmol/L Blood Urea Nitrogen 14 mg/dl Creatinine 0.58 mg/dl Est Creatinine Clear Calc Drug Dose 54.7 ml/min Estimated GFR () 97.4 Estimated GFR (Non- 84.0 BUN/Creatinine Ratio 24.1 Random Glucose 116 mg/dl Calcium Level 8.8 mg/dl Total Creatine Kinase 89 U/L Creatine Kinase MB 3.9 ng/ml Creatine Kinase MB Ratio 4.4 Troponin I 0.520 ng/ml Pro-B-Type Natriuretic Peptide 3851 pg/ml Triglycerides Level 47 mg/dl Cholesterol Level 173 mg/dl HDL Cholesterol 74 mg/dl LDL Cholesterol, Calculated 90 mg/dl VLDL Cholesterol, Calculated 9 mg/dl Cholesterol/HDL Ratio 2.3 CXR: See above. EKG dated and timed 20-AUG-2016 @ 16:27:34: Normal sinus rhythm at 99 bpm. Left bundle branch block. EKG dated and timed 21-AUG-2016 @ 07:45:21: Normal sinus rhythm with sinus arrhythmia at 81 bpm. Left bundle branch block. Telemetry: Sinus/sinus tachycardia. PVC's in singles. Echo: Pending. (Michele Huerta PA-C) Assessment & Plan Very pleasant 86 year old female presenting to [facility] on August 20, 2016 with signs and symptoms of acute decompensated congestive heart failure. Although this may represent an acute exacerbation of diastolic congestive heart failure secondary to uncontrolled hypertension following discontinuation of thiazide diuretic therapy, clinical concern is raised for new onset systolic dysfunction. Troponin elevations, at this point, appear to representing demand ischemia with EKG's uninterruptible due to the chronic left bundle branch block. Recommend supplementing potassium orally, correcting the hypokalemia observed on morning labs followed by continued IV diuresis with low dose IV furosemide. Nitro paste will be continued for blood pressure control. Carvedilol will be initiated for additional blood pressure as well as heart rate control. ASA and statin therapies should be continued. Resting echocardiography requested with further recommendations pending the results of the echo, evaluation by Dr. Jospeh, and her ongoing hospitalization. (Michele Huerta PA-C) CARDIOLOGY ATTENDING ADDENDUM: The patient was seen and personally examined. Agree with Michele Huerta PA-C's findings and plans as documented above with additions as noted below. S: patient feels much improved. SOB and LE edema improved. BP still elevated. Exam: trace ankle edema Impression: Volume overload acute systolic vs diastolic Heart failure, in setting of LBBB. hypokalemia. Plan: Furosemide 20 mg IV x 1 now. Has already received IV and PO potassium replacement, will order another dose of potassium chloride 20 mg PO x 1 with furosemide. check chem panel in am. Await echo. SQ heparin for DVT prophylaxis. (Angelo Joseph,D.O.)
[2016-08-21] MEDS ORDERED: POTASSIUM CHLORIDE 10 MEQ TABCR PO STA (15:26)
[2016-08-21] MEDS ORDERED: FUROSEMIDE INJ 20 MG in SYRINGE 0 ML IV ONE (15:45)
--- NOTE | 2016-08-21 16:46 | ECHOCARDIOGRAM REPORT ---
*NOTICE TO RECEIVING [employer] This information is strictly Confidential and protected under [place] law. [place] law prohibits you from making any further disclosure of this information unless further disclosure is expressly permitted by the written consent of the person to whom it pertains or is authorized by law. A general authorization for the release of medical or other information is not sufficient for this purpose. Hospital accepts no responsibility if the information is made available to any other person, INCLUDING THE PATIENT. Interpretation Summary * Name: MARY MALLORY Study Date: 08/21/2016 02:23 PM * Patient Location: [facility] * : 1930 (M/d/yyyy) Gender: Female Height: 59 in * Age: 86 yrs Ethnicity: CA Weight: 133 lb * Ordering Physician: Basia Bland * Referring Physician: Self, Referred * Performed By: Trevor Arteaga RCS * * Reason For Study: CHF * BSA: 1.6 m2 * -- Conclusions -- * There is mild concentric left ventricular hypertrophy. * The left ventricle is mildly dilated. * Septal motion is consistent with conduction abnormality. * Otherwise, there is moderate to severe global left ventricular hypokinesis. * Left ventricular systolic function is severely reduced. * Ejection Fraction = 25-30%. * There is severe mitral annular calcification. * There is moderate mitral regurgitation. * Grade I diastolic dysfunction, (abnormal relaxation pattern). * The left atrium is moderately dilated. Procedure Details * A complete two-dimensional transthoracic echocardiogram was performed (2D, M-mode, Doppler and color flow Doppler). Left Ventricle * The left ventricle is mildly dilated. * There is mild concentric left ventricular hypertrophy. * Left ventricular systolic function is severely reduced. * Ejection Fraction = 25-30%. * Septal motion is consistent with conduction abnormality. * Otherwise, there is moderate to severe global left ventricular hypokinesis. Right Ventricle * The right ventricle is normal size. * The right ventricular systolic function is normal as assessed by tricuspid annular plane systolic excursion (TAPSE) (normal >1.5 cm). Atria * The left atrium is moderately dilated. * Right atrial size is normal. * There is no evidence of atrial septal defect, but resolution does not allow assessment for a patent foramen ovale. Mitral Valve * There is severe mitral annular calcification. * There is no mitral valve stenosis. * There is moderate mitral regurgitation. Tricuspid Valve * The tricuspid valve is normal. * There is no tricuspid stenosis. * Significant tricuspid regurgitation is absent. * Doppler findings do not suggest pulmonary hypertension. Aortic Valve * The aortic valve is trileaflet. * Aortic stenosis is absent. * There is no significant aortic regurgitation. Pulmonic Valve * The pulmonary valve is not well seen, but the Doppler examination is normal without significant regurgitation or stenosis. Great Vessels * The aortic root and proximal ascending aorta are normal sized. Pericardium/Pleural * There is no pericardial effusion. Great Vessels * Normal inferior vena cava diameter and respiratory variation suggests normal central venous pressure. Left Ventricular Diastolic Function * Grade I diastolic dysfunction, (abnormal relaxation pattern). MMode 2D Measurements and Calculations IVSd 1.0 cm LVIDd 5.4 cm LVIDs 4.5 cm LVPWd 1.1 cm IVS/LVPW 0.94 FS 17.1 % EDV(Teich) 143.0 ml ESV(Teich) 92.6 ml EF(Teich) 35.3 % EDV(cubed) 160.0 ml ESV(cubed) 91.3 ml EF(cubed) 42.9 % LV mass(C)d 221.8 grams LV mass(C)dI 143.1 grams/m\S\2 SV(Teich) 50.5 ml SI(Teich) 32.6 ml/m\S\2 SV(cubed) 68.7 ml SI(cubed) 44.3 ml/m\S\2 LVAd ap4 28.9 cm\S\2 LVLd ap4 7.6 cm EDV(MOD-sp4) 89.7 ml LVAs ap4 23.8 cm\S\2 LVLs ap4 6.9 cm ESV(MOD-sp4) 67.3 ml EF(MOD-sp4) 25.0 % LVAd ap2 32.9 cm\S\2 LVLd ap2 8.0 cm EDV(MOD-sp2) 113.0 ml LVAs ap2 23.3 cm\S\2 LVLs ap2 6.7 cm ESV(MOD-sp2) 68.7 ml EF(MOD-sp2) 39.2 % SV(MOD-sp4) 22.4 ml SI(MOD-sp4) 14.4 ml/m\S\2 SV(MOD-sp2) 44.3 ml SI(MOD-sp2) 28.6 ml/m\S\2 Doppler Measurements and Calculations MV E max johanna 94.1 cm/sec MV A max johanna 109.6 cm/sec MV E/A 0.86 MV P1/2t max johanna 120.4 cm/sec MV P1/2t 44.9 msec MVA(P1/2t) 4.9 cm\S\2 MV dec slope 784.3 cm/sec\S\2 MV dec time 0.10 sec Ao V2 max 123.7 cm/sec Ao max PG 6.1 mmHg Ao max PG (full) 3.8 mmHg LV V1 max PG 2.3 mmHg LV V1 max 76.6 cm/sec
--- NOTE | 2016-08-21 17:53 | Progress Note ---
Medicine Progress Note Date & Time of Visit: Aug 21, 2016 at 17:27. Subjective Pt was seen and examined Lying in bed comfortable with no distress Pt said that she feels much better today She said that before she could not lying flat on the her bed because of dyspnea She denies any chest pain, palpitation, dizziness. Objective Last 8 Hrs Date Time Temp Pulse Resp B/P (MAP) Pulse Ox O2 Delivery O2 Flow Rate FiO2 08/21/16 16:21 102 157/77 (103) 08/21/16 12:00 Room Air 08/21/16 11:19 36.7 92 16 165/89 (114) 95 Room Air Physical Exam: General- No acute distress, very pleasant Head- atraumatic Eyes- PERRL, EOMI ENT- oropharynx clear Neck- supple, no bruits appreciated Lungs- No wheezing Heart- regular rhythm, +systolic murmur Abdomen- normal bowel sounds, soft, nontender Extremities- no calf tenderness Neuro- alert, oriented x 3; PERRL, EOMI Skin- warm & dry Laboratory Results: Last 24 Hours Test 08/20/16 17:43 08/20/16 23:23 08/21/16 00:00 08/21/16 05:20 Urine Color YELLOW YELLOW Urine Appearance CLEAR CLEAR Urine pH 7.0 7.5 Urine Specific [place] 1.012 1.014 Urine Protein NEG NEG Urine Glucose (UA) NEG NEG Urine Ketones NEG NEG Urine Occult Blood NEG NEG Urine Nitrite NEG NEG Urine Bilirubin NEG NEG Urine Urobilinogen NEG NEG Urine Leukocyte Esterase NEG NEG Total Creatine Kinase 80 U/L 89 U/L Creatine Kinase MB 2.5 ng/ml 3.9 ng/ml Creatine Kinase MB Ratio 3.1 4.4 Troponin I 0.148 ng/ml 0.520 ng/ml White Blood Count 5.76 K/uL Red Blood Count 4.00 M/uL Hemoglobin 12.3 g/dL Hematocrit 37.8 % Mean Corpuscular Volume 94.5 fL Mean Corpuscular Hemoglobin 30.8 pg Mean Corpuscular Hemoglobin Concent 32.5 g/dl RDW Standard Deviation 42.8 fL RDW Coefficient of Variation 12.5 % Platelet Count 309 K/uL Mean Platelet Volume 10.0 fL Sodium Level 136 mmol/L Potassium Level 3.2 mmol/L Chloride Level 100 mmol/L Carbon Dioxide Level 27 mmol/L Anion Gap 9.0 mmol/L Blood Urea Nitrogen 14 mg/dl Creatinine 0.58 mg/dl Est Creatinine Clear Calc Drug Dose 54.7 ml/min Estimated GFR () 97.4 Estimated GFR (Non- 84.0 BUN/Creatinine Ratio 24.1 Random Glucose 116 mg/dl Calcium Level 8.8 mg/dl Pro-B-Type Natriuretic Peptide 3851 pg/ml Triglycerides Level 47 mg/dl Cholesterol Level 173 mg/dl HDL Cholesterol 74 mg/dl LDL Cholesterol, Calculated 90 mg/dl VLDL Cholesterol, Calculated 9 mg/dl Cholesterol/HDL Ratio 2.3 Date/Time Source Procedure Growth Status 08/21/16 00:00 Urine,Catheterized Urine Culture Pending Received Assessment & Plan Acute CHF exacerbation- Has been having worsening dyspnea and orthopnea Discontinued Maxzide recently due to hyponatremia CXR on admission showed Congestive heart failure pattern with bilateral pleural effusions Received 20 IV lasix in the ER and diuresis about 1700 ml cardiology ordered lasix 20mg x1 today Continue monitor in telemetry Cardiology on board Echo done today showed -- Conclusions -- * There is mild concentric left ventricular hypertrophy. * The left ventricle is mildly dilated. * Septal motion is consistent with conduction abnormality. * Otherwise, there is moderate to severe global left ventricular hypokinesis. * Left ventricular systolic function is severely reduced. * Ejection Fraction = 25-30%. * There is severe mitral annular calcification. * There is moderate mitral regurgitation. * Grade I diastolic dysfunction, (abnormal relaxation pattern). * The left atrium is moderately dilated. Chest pain Seems to be atypical on presentation Troponin slightly increased EKG showed LBBB Echo showed moderate to severe global left ventricular hypokinesis. Continue ass, statin and Beta ramya Resolved HTN Not on any outpt BP med Maxzide was discontinued by her PCP Continue nitropaste, carvedilol Hypokalemia K replaced continue monitor BMP DVT px heparin SQ CODE STATUS Full Code Consultants: Cardio Current Inpatient Medications: Current Inpatient Medications Medications (Trade) Dose Ordered Sig/Mirlande Route Start Time Stop Time Status Last Admin Dose Admin Heparin Sodium (Porcine) (Heparin Sq 5000 Unit/0.5ml) 5,000 unit Q8 SQ 08/20/16 22:30 09/19/16 22:29 08/21/16 14:01 5,000 UNIT Acetaminophen (Tylenol Tab) 650 mg Q4H PRN PO 08/20/16 21:30 09/19/16 21:29 Ondansetron HCl (Zofran Inj) 4 mg Q6H PRN IV 08/20/16 21:30 09/19/16 21:29 Nitroglycerin (Nitroglycerin 2% Oint) 1 inch Q6H EXT 08/20/16 22:00 09/19/16 21:59 08/21/16 16:30 1 INCH Morphine Sulfate (MoRPHine SULFATE INJ) 2 mg Q30M PRN IV 08/20/16 21:30 09/03/16 21:29 Polyethylene (Miralax Powder Packet) 17 gm DAILY PRN PO 08/20/16 21:30 09/19/16 21:29 Atorvastatin Calcium (Lipitor Tab) 80 mg HS PO 08/20/16 22:30 09/19/16 22:29 08/20/16 22:26 80 MG Aspirin (Ecotrin Tab) 325 mg DAILY PO 08/21/16 09:00 09/20/16 08:59 08/21/16 07:37 325 MG Multivitamins/ Minerals (Multivitamin W/ Minerals Tab) 1 tab DAILY PO 08/21/16 09:00 09/20/16 08:59 08/21/16 07:37 1 TAB Carvedilol (Coreg Tab) 3.125 mg BID PO 08/21/16 21:00 09/20/16 20:59
[2016-08-21] MEDS: CARVEDILOL 3.125 MG TAB PO SCH (21:38)
[2016-08-21] MEDS: ATORVASTATIN 40 MG TAB PO SCH (21:39)
[2016-08-22] VITALS (7 sets, daily range): BP systolic 127–147; BP diastolic 58–81; PULSE 68–87; TEMP 36.4–36.7; O2SAT 95–96
[2016-08-22] MEDS: NITROGLYCERIN OINT 2% 1GM PACKET EXT SCH ×2 (04:50→09:47)
[2016-08-22] MEDS: HEPARIN SOD 5000 UNIT/0.5 ML CARP SQ SCH ×2 (05:50→14:03)
[2016-08-22 06:35] LABS: BUN/CREATININE RATIO 26.4 (10-20); CALCIUM 8.8 mg/dl (8.5-10.1); CREATININE 0.66 mg/dl (0.60-1.20); MAGNESIUM 1.8 mg/dl (1.8-2.4); POTASSIUM 3.7 mmol/L (3.5-5.1)
[2016-08-22] MEDS: CARVEDILOL 3.125 MG TAB PO SCH (08:19)
[2016-08-22] MEDS: ASPIRIN 325 MG ECTAB PO SCH (08:20)
[2016-08-22] MEDS: CEROVITE ADV FORMULA TAB PO SCH (08:20)
--- NOTE | 2016-08-22 10:33 | Cardiology Follow-Up ---
Subjective General Date of Service: Aug 22, 2016. Chief Complaint: Shortness of breath Pt evaluation today including: conversation w/ patient, physical exam, chart review, lab review, review of studies, review of inpatient medication list History of Present Illness Patient seen and examined. Feels considerably better this morning. Very anxious to return home. No resting or nocturnal dyspnea, cough, or orthopnea. Slept well. Lower extremity edema improved. Denies chest pain or palpitations. I/O's are negative 3,000 mL's overall Weight is down 3.2 kg since admission Telemetry: Sinus with a LBBB pattern in the 80's. PVC's in singles. Short paroxysm of SVT at 17:00:14. August 21, 2016 TTE Interpretation Summary ([facility], Dr. Joseph): There is mild concentric left ventricular hypertrophy. The left ventricle is mildly dilated. Septal motion is consistent with conduction abnormality. Otherwise, there is moderate to severe global left ventricular hypokinesis. Left ventricular systolic function is severely reduced. Ejection Fraction = 25-30%. There is severe mitral annular calcification. There is moderate mitral regurgitation. Grade I diastolic dysfunction, (abnormal relaxation pattern). The left atrium is moderately dilated. EKG dated and timed 22-AUG-2016 @ 08:26:01: Normal sinus rhythm at 89 bpm. Left bundle branch block. QRS duration 128 ms. Allergies Coded Allergies: Sulfa Antibiotics (Unverified Allergy, Unknown, CAN'T RECALL REACTION, 12/27) Social History Smoking Status: Never Smoker Hx Tobacco Use In Past Year?: No Hx Alcohol Use - Type And Amou: No Hx Substance Use - Type And Am: No Problem List Medical Problems: (1) Acute CHF Status: Acute Physical Exam Vital Signs Last Vital Signs Documentation Date Time Temp Pulse Resp B/P (MAP) Pulse Ox O2 Delivery O2 Flow Rate FiO2 08/22/16 09:46 83 135/79 (97) 08/22/16 08:05 36.4 16 96 Room Air Physical Exam Constitutional: Level of Distress: NAD Psychiatric: Mental Status: active & alert Orientation: to time, to place, to person Memory: recent memory normal, remote memory normal Head: normocephalic, atraumatic Eyes: Pupils: PERRLA Neck: pertinent finding (Normal JVP) Lungs: Auscultation: no wheezing, deminished air movement, decreased breath sounds , rales/crackles on the left Cardiovascular: Heart Auscultation: RRR (90 bpm), II/ TITUS, gallop Peripheral Pulses: Radial Pulse: normal on the left, normal on the right Dorsalis Pedis Pulse: normal on the left, normal on the right Abdomen: Bowel Sounds: normal Inspection & Palpation: soft, non-distended, no masses Extremities: no cyanosis, no edema, no clubbing Neurologic: Cranial Nerves: grossly intact Assessment and Plan Assessment and Plan Admission with acute decompensated congestive heart failure, presenting with NYHA Class III dyspnea, echocardiography revealing a mildly dilated left ventricle with new onset moderate to severe global left ventricular hypokinesis and severe systolic dysfunction, EF 25-30%. EKG notable for a chronic left bundle branch block with QRS duration of 128 ms this morning. Presenting symptoms have significantly improved with two doses of 20 mg IV furosemide. Volume status this morning is normovolemic. RECOMMENDATIONS/PLAN: Discontinue IV furosemide Discontinue nitro paste Start oral furosemide, 20 mg/day Start spironolactone, 12.5 mg/day Start Losartan, 12.5 mg/day Coreg 3.125 mg BID added this admission, to be titrated as tolerated as an outpatient Decrease ASA to 81 mg/day Atorvastatin, 40 mg/day on discharge Close outpatient cardiology follow-up Eventual outpatient Lexiscan nuclear stress testing TTE in 3 months to reassess LV function. CARDIOLOGY ATTENDING ADDENDUM: The patient was seen and personally examined. Agree with Michele Huerta PA-C's findings and plans as documented above with additions as noted below. Subjective: Patient much improved subjectively. Exam: Regular rhythm, no murmurs, lungs clear No edema Impression: Newly diagnosed acute systolic heart failure, left bundle branch block, severe left ventricular systolic dysfunction. Plan: Outpatient follow-up missed Mr. Huerta will be arranged. Medication therapy to include aspirin, atorvastatin 10 mg daily, carvedilol 3.125 mg by mouth twice a day, furosemide 20 mg by mouth daily, losartan 12.5 mg daily at bedtime, spironolactone 12.5 mg daily in morning. Laboratory Results Last 24 Hours Test 08/21/16 18:17 08/21/16 20:09 08/22/16 05:37 Troponin I 0.327 ng/ml Bedside Glucose 284 mg/dl Sodium Level 135 mmol/L Potassium Level 3.7 mmol/L Chloride Level 102 mmol/L Carbon Dioxide Level 27 mmol/L Anion Gap 6.0 mmol/L Blood Urea Nitrogen 17 mg/dl Creatinine 0.66 mg/dl Est Creatinine Clear Calc Drug Dose 48.0 ml/min Estimated GFR () 93.4 Estimated GFR (Non- 80.6 BUN/Creatinine Ratio 26.4 Random Glucose 118 mg/dl Calcium Level 8.8 mg/dl Magnesium Level 1.8 mg/dl
[2016-08-22] MEDS ORDERED: SPIRONOLACTONE 25 MG TAB PO SCH (11:00)
[2016-08-22] MEDS ORDERED: FUROSEMIDE 20 MG TAB PO SCH (11:00)
[2016-08-22 11:56] LABS: THYROID STIMULATING HORMONE 0.82 uIu/ml (0.300-4.500)
[2016-08-22 12:42] LABS: LYME DISEASE AB IGG NEG (NEG)
[2016-08-22 12:46] LABS: LYME DISEASE AB IGM NEG (NEG)
--- NOTE | 2016-08-22 16:13 | Progress Note ---
Medicine Progress Note Date & Time of Visit: Aug 22, 2016 at 16:03. Subjective Pt was seen and examined Sitting in bed very comfortable with no distress with granddaughter at bedside Pt said that she feels good she said that she walked fine today with no distress she denies any chest pain, palpitation, dizziness and SOB Objective Last 8 Hrs Date Time Temp Pulse Resp B/P (MAP) Pulse Ox O2 Delivery O2 Flow Rate FiO2 08/22/16 12:20 Room Air 08/22/16 11:21 36.6 78 18 132/75 (94) 96 Room Air 08/22/16 09:46 83 135/79 (97) 08/22/16 08:05 36.4 68 16 146/76 (99) 96 Room Air Physical Exam: General- No acute distress, very pleasant Head- atraumatic Eyes- PERRL, EOMI ENT- oropharynx clear Neck- supple, no bruits appreciated Lungs- No wheezing, no crackles Heart- regular rhythm, +systolic murmur Abdomen- normal bowel sounds, soft, nontender Extremities- no calf tenderness Neuro- alert, oriented x 3; PERRL, EOMI Skin- warm & dry Laboratory Results: Last 24 Hours Test 08/21/16 18:17 08/21/16 20:09 08/22/16 05:37 08/22/16 10:53 Troponin I 0.327 ng/ml Bedside Glucose 284 mg/dl Sodium Level 135 mmol/L Potassium Level 3.7 mmol/L Chloride Level 102 mmol/L Carbon Dioxide Level 27 mmol/L Anion Gap 6.0 mmol/L Blood Urea Nitrogen 17 mg/dl Creatinine 0.66 mg/dl Est Creatinine Clear Calc Drug Dose 48.0 ml/min Estimated GFR () 93.4 Estimated GFR (Non- 80.6 BUN/Creatinine Ratio 26.4 Random Glucose 118 mg/dl Calcium Level 8.8 mg/dl Magnesium Level 1.8 mg/dl Erythrocyte Sedimentation Rate 12 mm/hr Iron Level 63 mcg/dl Ferritin 133.0 ng/ml Thyroid Stimulating Hormone (TSH) 0.820 uIu/ml Lyme Disease IgG Antibody NEG Lyme Disease IgM Antibody NEG Assessment & Plan Acute CHF exacerbation Has been having worsening dyspnea and orthopnea Discontinued Maxzide recently due to hyponatremia CXR on admission showed Congestive heart failure pattern with bilateral pleural effusions Received 20 IV lasix in the ER and diuresis about 1700 ml cardiology ordered lasix 20mg x1 today Continue monitor in telemetry Cardiology on board 08/22 Clinically stable Asymptomatic cardiology recommended: Start oral furosemide, 20 mg/day Start spironolactone, 12.5 mg/day Start Losartan, 12.5 mg/day Coreg 3.125 mg BID added this admission, to be titrated as tolerated as an outpatient Decrease ASA to 81 mg/day Atorvastatin, 40 mg/day on discharge Follow up with cardiology as an outpatient Echo in 3 months to reassess LV function. Echo done today showed -- Conclusions -- * There is mild concentric left ventricular hypertrophy. * The left ventricle is mildly dilated. * Septal motion is consistent with conduction abnormality. * Otherwise, there is moderate to severe global left ventricular hypokinesis. * Left ventricular systolic function is severely reduced. * Ejection Fraction = 25-30%. * There is severe mitral annular calcification. * There is moderate mitral regurgitation. * Grade I diastolic dysfunction, (abnormal relaxation pattern). * The left atrium is moderately dilated. Chest pain Seems to be atypical on presentation Troponin slightly increased EKG showed LBBB Echo showed moderate to severe global left ventricular hypokinesis. Continue ass, statin and Beta ramya Resolved HTN Not on any outpt BP med Maxzide was discontinued by her PCP Continue nitropaste, carvedilol d/c nitro paste stable Hypokalemia stable continue monitor BMP DVT px heparin SQ CODE STATUS Full Code Consultants: Cardio Current Inpatient Medications: Current Inpatient Medications Medications (Trade) Dose Ordered Sig/Mirlande Route Start Time Stop Time Status Last Admin Dose Admin Heparin Sodium (Porcine) (Heparin Sq 5000 Unit/0.5ml) 5,000 unit Q8 SQ 08/20/16 22:30 09/19/16 22:29 08/22/16 14:03 5,000 UNIT Acetaminophen (Tylenol Tab) 650 mg Q4H PRN PO 08/20/16 21:30 09/19/16 21:29 Ondansetron HCl (Zofran Inj) 4 mg Q6H PRN IV 08/20/16 21:30 09/19/16 21:29 Morphine Sulfate (MoRPHine SULFATE INJ) 2 mg Q30M PRN IV 08/20/16 21:30 09/03/16 21:29 Polyethylene (Miralax Powder Packet) 17 gm DAILY PRN PO 08/20/16 21:30 09/19/16 21:29 Multivitamins/ Minerals (Multivitamin W/ Minerals Tab) 1 tab DAILY PO 08/21/16 09:00 09/20/16 08:59 08/22/16 08:20 1 TAB Carvedilol (Coreg Tab) 3.125 mg BID PO 08/21/16 21:00 09/20/16 20:59 08/22/16 08:19 3.125 MG Aspirin (Ecotrin Tab) 81 mg DAILY PO 08/23/16 09:00 09/20/16 08:59 Furosemide (Lasix Tab) 20 mg QAM PO 08/22/16 11:00 09/21/16 10:59 08/22/16 12:41 20 MG Spironolactone (Aldactone Tab) 12.5 mg QAM PO 08/22/16 11:00 09/21/16 10:59 08/22/16 12:42 12.5 MG Losartan Potassium (coZAAR TAB) 12.5 mg QPM PO 08/22/16 21:00 09/21/16 20:59 Atorvastatin Calcium (Lipitor Tab) 10 mg QAM PO 08/23/16 09:00 09/22/16 08:59
[2016-08-22] MEDS ORDERED: LPT10 PO (16:19)
[2016-08-22] MEDS ORDERED: ASPEC81 PO (16:19)
[2016-08-22] MEDS ORDERED: LSX20 PO (16:19)
[2016-08-22] MEDS ORDERED: SPR25 PO (16:19)
[2016-08-22] MEDS ORDERED: CRG3125 PO (16:19)
[2016-08-22] MEDS ORDERED: CZR25 PO (16:19)
--- NOTE | 2016-08-22 16:39 | Discharge Instructions ---
Discharge Instructions Date of Service Aug 22, 2016. Admission Reason for Admission: Chf Exacerbation Discharge Discharge Diagnosis / Problem: Acute decompensated congestive heart failure, Hypokalemia, HTN, Chest pain Discharge Goals Goal(s): Decrease discomfort, Improve function, Improve disease control Activity Recommendations Activity Limitations: resume your previous activity (as tolerated) . Instructions / Follow-Up Instructions / Follow-Up Follow up with your primary care provider (Dr. Pradhan office will call you to schedule follow appointment) Follow up with Cardiology Deisi CARVAJAL ( [facility] colleague ) on 08/27 @ 8AM Check BMP within 1 week to monitor electrolytes Fall precaution Repeat Echocardiogram in 3 months to reassess LV function. Discontinue Aspirin 325mg Starting on Aspirin 81mg daily New medications Start oral furosemide 20 mg daily Start spironolactone 12.5 mg daily Start Losartan 12.5 mg daily Coreg 3.125 mg twice a day Decrease ASA to 81 mg/day Atorvastatin, 40 mg/day on discharge Current Hospital Diet Patient's current hospital diet: Low Sodium Diet (2gm Na) Discharge Diet Recommended Diet: AHA Diet (Heart Healthy), Low Sodium Diet (2gm Na) Pending Studies Studies pending at discharge: no Laboratory Results Lipid Panel Test 08/21/16 05:20 Range/Units Triglycerides Level 47 0-150 mg/dl Cholesterol Level 173 0-200 mg/dl HDL Cholesterol 74 mg/dl Cholesterol/HDL Ratio 2.3 LDL Cholesterol, Calculated 90 mg/dl Medical Emergencies . Who to Call and When: Medical Emergencies: If at any time you feel your situation is an emergency, please call 911 immediately. . Non-Emergent Contact Non-Emergency issues call your: Primary Care Provider Call Non-Emergent contact if: you have any medication questions . . "Provider Documentation" section prepared by Archana Pepper. . VTE Core Measure Inpt VTE Proph given/why not?: Unfractionated heparin SQ
[2016-08-22] MEDS ORDERED: LOSARTAN POTASSIUM 25 MG TAB PO SCH (21:00)
[2016-08-23] MEDS ORDERED: ASPIRIN 81 MG ECTAB PO SCH (09:00)
[2016-08-23] MEDS ORDERED: ATORVASTATIN 10 MG TAB PO SCH (09:00)
[2016-08-23 16:41] LABS: ALBUMIN 3.6 G/DL (3.8-4.8); GAMMA GLOBULIN 0.6 G/DL (0.8-1.7); TOTAL PROTEIN 5.8 G/DL (6.2-8.3)
--- NOTE | 2016-08-23 16:46 | Discharge Summary ---
Discharge Summary Date of Service Aug 23, 2016. Discharge Summary Admission Date: Aug 20, 2016 at 20:37 Discharge Date: Aug 22, 2016 Discharge Disposition: Home Principal Diagnosis: Acute systolic CHF exacerbation Secondary Diagnoses/Problems: HTN Hypokalemia Chest pain Procedures: CHEST ONE VIEW PORTABLE CLINICAL HISTORY: Shortness of breath. COMPARISON STUDY: 01/08/2014 FINDINGS: The heart is enlarged. There is radiographic evidence of congestive failure/fluid overload. There are small bilateral pleural effusions. There are associated bibasilar opacities likely atelectatic. Arthritic changes are present within the shoulders.[ IMPRESSION: Congestive heart failure pattern with bilateral pleural effusions. There are bibasilar opacities, likely atelectatic Electronically signed by: Kofi Cornell M.D. 08/20/2016 4:51 PM Dictated Date/Time: 08/20/2016 4:50 PM Interpretation Summary * Name: MARY MALLORY Study Date: 08/21/2016 02:23 PM * Patient Location: [facility] * : 1930 (M/d/yyyy) Gender: Female Height: 59 in * Age: 86 yrs Ethnicity: [place] Weight: 133 lb * Ordering Physician: Basia Bland * Referring Physician: Self, Referred * Performed By: Trevor Arteaga RCS * * Reason For Study: CHF * BSA: 1.6 m2 * -- Conclusions -- * There is mild concentric left ventricular hypertrophy. * The left ventricle is mildly dilated. * Septal motion is consistent with conduction abnormality. * Otherwise, there is moderate to severe global left ventricular hypokinesis. * Left ventricular systolic function is severely reduced. * Ejection Fraction = 25-30%. * There is severe mitral annular calcification. * There is moderate mitral regurgitation. * Grade I diastolic dysfunction, (abnormal relaxation pattern). * The left atrium is moderately dilated. Procedure Details * A complete two-dimensional transthoracic echocardiogram was performed (2D, M- mode, Doppler and color flow Doppler). Left Ventricle * The left ventricle is mildly dilated. * There is mild concentric left ventricular hypertrophy. * Left ventricular systolic function is severely reduced. * Ejection Fraction = 25-30%. * Septal motion is consistent with conduction abnormality. * Otherwise, there is moderate to severe global left ventricular hypokinesis. Right Ventricle * The right ventricle is normal size. * The right ventricular systolic function is normal as assessed by tricuspid annular plane systolic excursion (TAPSE) (normal >1.5 cm). Atria * The left atrium is moderately dilated. * Right atrial size is normal. * There is no evidence of atrial septal defect, but resolution does not allow assessment for a patent foramen ovale. Mitral Valve * There is severe mitral annular calcification. * There is no mitral valve stenosis. * There is moderate mitral regurgitation. Tricuspid Valve * The tricuspid valve is normal. * There is no tricuspid stenosis. * Significant tricuspid regurgitation is absent. * Doppler findings do not suggest pulmonary hypertension. Aortic Valve * The aortic valve is trileaflet. * Aortic stenosis is absent. * There is no significant aortic regurgitation. Pulmonic Valve * The pulmonary valve is not well seen, but the Doppler examination is normal without significant regurgitation or stenosis. Great Vessels * The aortic root and proximal ascending aorta are normal sized. Pericardium/Pleural * There is no pericardial effusion. Great Vessels * Normal inferior vena cava diameter and respiratory variation suggests normal central venous pressure. Left Ventricular Diastolic Function * Grade I diastolic dysfunction, (abnormal relaxation pattern). Consultations: Cardio Medication Reconciliation New Medications: Aspirin (Aspirin EC Low Dose) 81 Mg Ectab 81 MG PO DAILY for 30 Days Atorvastatin (Atorvastatin Calcium) 10 Mg Tab 10 MG PO QAM for 30 Days, #30 TAB Carvedilol (Carvedilol) 3.125 Mg Tab 3.125 MG PO BID for 30 Days, #60 TAB Furosemide (Furosemide) 20 Mg Tab 20 MG PO QAM for 30 Days, #30 TAB Losartan Potassium (Losartan Potassium) 25 Mg Tab 12.5 MG PO QPM for 30 Days, TAB Spironolactone (Spironolactone) 25 Mg Tab 12.5 MG PO QAM for 30 Days, #15 TAB Continued Medications: Acetaminophen (Tylenol) 500 Mg Tab 500 MG PO DIRECTED PRN for Pain or Fever, TAB Multiple Vitamins W/ Minerals (Centrum Silver Ultra Wome) 1 Tab Tab 1 TAB PO DAILY Discontinued Medications: Aspirin (Aspirin) 325 Mg Tab 325 MG PO DAILY Admission Information HPI (per Admitting provider): 86 yo F with HTN presents with several weeks of shortness of breath and ankle swelling, with SOB increasing to the point of conversational dyspnea in the last two days. She denies any weight gain and states that her average weight at home is 125lbs. She reports the shortness of breath progressively getting worse over the past month and in the last two days she reports coughing, intermittent chest pain that goes away with rest and comes on with exertion, PND and orthopnea. She denies any swelling in her abdomen or elsewhere. She reports a history of mitral valve regurgitation, however, on review of the records her last TTE in Dec 2012 revealed mitral valve calcification without evident of regurgitation. She denies any h/o COPD and is a lifelong nonsmoker who doesn't use alcohol. She denies any history of heart disease. 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 There is significant tenderness to palpation of her chest on my exam tonight. She also has some conversational dyspnea that is present. She is unable to qualify her chest pain but states that it doesn't radiate. She does report pain with taking a deep breath. She reports feeling drainage in her throat when she lies flat, and this causes her to cough and need to sit up/elevate her head. She reports her ears feeling "itchy" when she lays flat. She was placed on Maxzide for HTN a few months ago and then was taken off because of low sodium and was never put back on. The patient states that when she sees a doctor her BP goes up but at home when she takes it the readings are around 130 systolic. She does report a headache, but only since the nitropaste was placed in the ER. Workup in the ER reveals congestive failure on xray with clear lungs on exam, no JVD, or edema but clear issues with working to breath with minimal exertion. She does not desaturate, however , and is oxygenating well on room air. EKG reveals chronic LBBB, trop is negative and labwork is otherwise unremarkable except for a BNP 2745. Physical Exam (per Admitting): General Appearance: WD/WN, + mild distress Head: normocephalic, atraumatic Eyes: normal inspection, PERRL, EOMI, sclerae normal ENT: normal ENT inspection, pharynx normal Neck: supple, no adenopathy, no JVD, trachea midline Respiratory/Chest: lungs clear, normal breath sounds, + respiratory distress (severe TTP under L breast and along sternal borders bilaterally), + pertinent finding Cardiovascular: regular rate, rhythm, no edema, no murmur, normal peripheral pulses Abdomen/GI: normal bowel sounds, non tender, soft Extremities/Musculoskelatal: normal inspection, no pedal edema, normal range of motion, + pertinent finding (shins are TTP) 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5 mg/day Start Losartan, 12.5 mg/day Coreg 3.125 mg BID added this admission, to be titrated as tolerated as an outpatient Decrease ASA to 81 mg/day Atorvastatin, 40 mg/day on discharge Follow up with cardiology as an outpatient Echo in 3 months to reassess LV function. Echo done today showed -- Conclusions -- * There is mild concentric left ventricular hypertrophy. * The left ventricle is mildly dilated. * Septal motion is consistent with conduction abnormality. * Otherwise, there is moderate to severe global left ventricular hypokinesis. * Left ventricular systolic function is severely reduced. * Ejection Fraction = 25-30%. * There is severe mitral annular calcification. * There is moderate mitral regurgitation. * Grade I diastolic dysfunction, (abnormal relaxation pattern). * The left atrium is moderately dilated. Chest pain Seems to be atypical on presentation Troponin slightly increased EKG showed LBBB Echo showed moderate to severe global left ventricular hypokinesis. Continue ass, statin and Beta ramya Resolved HTN Not on any outpt BP med Maxzide was discontinued by her PCP Continue nitropaste, carvedilol d/c nitro paste stable Hypokalemia stable continue monitor BMP DVT px heparin SQ CODE STATUS Full Code Total time spent on discharge = 35 minutes This includes examination of the patient, discharge planning, medication reconciliation, and communication with other providers. Discharge Instructions Discharge Instructions Date of Service Aug 22, 2016. Admission Reason for Admission: Chf Exacerbation Discharge Discharge Diagnosis / Problem: Acute decompensated congestive heart failure, Hypokalemia, HTN, Chest pain Discharge Goals Goal(s): Decrease discomfort, Improve function, Improve disease control Activity Recommendations Activity Limitations: resume your previous activity (as tolerated) . Instructions / Follow-Up Instructions / Follow-Up Follow up with your primary care provider (Dr. Pradhan office will call you to schedule follow appointment) Follow up with Cardiology Deisi CARVAJAL ( [facility] colleague ) on 08/27 @ 8AM Check BMP within 1 week to monitor electrolytes Fall precaution Repeat Echocardiogram in 3 months to reassess LV function. Discontinue Aspirin 325mg Starting on Aspirin 81mg daily New medications Start oral furosemide 20 mg daily Start spironolactone 12.5 mg daily Start Losartan 12.5 mg daily Coreg 3.125 mg twice a day Decrease ASA to 81 mg/day Atorvastatin, 40 mg/day on discharge Current Hospital Diet Patient's current hospital diet: Low Sodium Diet (2gm Na) Discharge Diet Recommended Diet: AHA Diet (Heart Healthy), Low Sodium Diet (2gm Na) Pending Studies Studies pending at discharge: no Laboratory Results Lipid Panel Test 08/21/16 05:20 Range/Units Triglycerides Level 47 0-150 mg/dl Cholesterol Level 173 0-200 mg/dl HDL Cholesterol 74 mg/dl Cholesterol/HDL Ratio 2.3 LDL Cholesterol, Calculated 90 mg/dl Medical Emergencies . Who to Call and When: Medical Emergencies: If at any time you feel your situation is an emergency, please call 911 immediately. . Non-Emergent Contact Non-Emergency issues call your: Primary Care Provider Call Non-Emergent contact if: you have any medication questions . . "Provider Documentation" section prepared by Archana Pepper. . VTE Core Measure Inpt VTE Proph given/why not?: Unfractionated heparin SQ Additional Copies To Nona Pradhan M.D.
== END 2016-08-22 17:15 | disposition home or self-care (01) | DRG 292 ==
LOC: C.EDB 16:14 → C.MED 20:37 → ENRESERV 21:01 → C.MED 08-21 18:17
PROVIDERS: ADMIT Hospitalist; ATTEND Internal Medicine
DX: I11.0 Hypertensive heart disease with heart failure (principal); I24.8 Other forms of acute ischemic heart disease; I50.21 Acute systolic (congestive) heart failure; I44.7 Left bundle-branch block, unspecified; E87.6 Hypokalemia; R07.89 Other chest pain; M19.012 Primary osteoarthritis, left shoulder; Z96.652 Presence of left artificial knee joint; Z82.49 Family history of ischemic heart disease and other diseases of the circulatory system; Z79.82 Long term (current) use of aspirin